=== PATIENT | female | born 2000 | race Caucasian/White ===

== ENCOUNTER 2022-11-06 19:00 | Inpatient (IN) | payer BC ==
[2022-11-06] MEDS ORDERED: Butorphanol Tartrate 1 MG/ML VIAL SLOW IVP PRN (20:11)
[2022-11-06] MEDS ORDERED: HYDROcodone/Acetaminophen 5/325 mg Tablet PO PRN ×2 (20:11)
[2022-11-06] MEDS ORDERED: hydrALAZINE 20 MG/ML VIAL SLOW IVP PRN (20:11)
[2022-11-06] MEDS ORDERED: Promethazine HCl 25 MG/ML VIAL IM PRN (20:11)
[2022-11-06] MEDS ORDERED: Ibuprofen 800 MG TAB PO PRN (20:11)
[2022-11-06] MEDS ORDERED: Lidocaine 1% (PF) 30 ML VIAL SC PRN (20:11)
[2022-11-06] MEDS ORDERED: Ondansetron PF 4 MG/2 ML Vial IVP PRN (20:11)
[2022-11-06] MEDS ORDERED: NS w/ Oxytocin 30 units 500 ML IV SCH ×2 (20:30)
[2022-11-06] MEDS ORDERED: Misoprostol 100 MCG TAB VAG SCH (20:30)
[2022-11-06 20:45] VITALS: BMI 27.6
[2022-11-06 20:46] LABS: Hemoglobin 10.9 g/dL (12.0-15.5); Mean Corpuscular HGB CONC 33.9 g/dL (32.0-36.0); Mean Corpuscular Hemoglobin 30.4 pg (27.0-33.0); Mean Corpuscular Volume 89.9 fl (81.6-98.3); Platelet Count 199 10x3/uL (150-450); RBC Distribution Width 12.7 % (11.5-14.5); Red Blood Cell (RBC) Count 3.58 10x6/uL (3.90-5.03); White Blood Cell (WBC) Count 6.5 10x3/uL (3.5-10.5)
[2022-11-06 21:25] LABS: Syphilis Antibody Nonreactive (Nonreactive); Syphilis Antibody Index 0.04 S/CO (<1.00 Non-Reactive)
[2022-11-06 21:26] LABS: HBSAg Index 0.17 S/CO (0-0.99); Hep B Surf Ag - L&D Non-Reactive S/CO (NonReactive)
[2022-11-06] MEDS ORDERED: Fentanyl 100 MCG/2 ML VIAL SLOW IVP PRN (21:27)
[2022-11-06] MEDS: Misoprostol 100 MCG TAB VAG SCH (22:16)
[2022-11-07] MEDS: Misoprostol 100 MCG TAB VAG SCH ×3 (00:51→11:55)
[2022-11-07] MEDS ORDERED: Fentanyl 2 mcg/Bup 0.1% Cadd 100 ML ONE (09:31)
[2022-11-07] MEDS ORDERED: diphenhydrAMINE 25 MG CAP PO PRN (11:56)
[2022-11-07] MEDS ORDERED: Ondansetron PF 4 MG/2 ML Vial IVP PRN (11:56)
[2022-11-07] MEDS ORDERED: Bisacodyl 10 MG SUPP PR PRN (11:56)
[2022-11-07] MEDS ORDERED: Benzocaine-Menthol 82.5 ML CAN TOP PRN (11:56)
[2022-11-07] MEDS ORDERED: Milk Of Magnesia 30 ML UDCUP PO PRN (11:56)
[2022-11-07] MEDS ORDERED: Boostrix 0.5 ML (Tdap) VIAL (>/=7 yrs of age) IM ONE (11:56)
[2022-11-07] MEDS ORDERED: HYDROcodone/Acetaminophen 5/325 mg Tablet PO PRN ×2 (11:56)
[2022-11-07] MEDS ORDERED: hydrALAZINE 20 MG/ML VIAL SLOW IVP PRN (11:56)
[2022-11-07] MEDS: Ibuprofen 800 MG TAB PO SCH (18:22)
[2022-11-08] MEDS: Ferrous Sulfate 325 MG TAB PO SCH ×2 (01:31→07:13)
[2022-11-08] MEDS: Ibuprofen 800 MG TAB PO SCH ×4 (01:47→18:09)
[2022-11-08] MEDS: Docusate 100 MG CAP PO SCH ×2 (01:47→08:04)
[2022-11-08] MEDS: Misoprostol 100 MCG TAB VAG SCH (07:41)
[2022-11-08] MEDS: Prenatal Vitamin 1 TAB PO SCH (08:05)
[2022-11-09] MEDS: Ibuprofen 800 MG TAB PO SCH ×2 (01:50→10:14)
[2022-11-09] MEDS: Docusate 100 MG CAP PO SCH ×2 (01:50→08:31)
[2022-11-09] MEDS: Ferrous Sulfate 325 MG TAB PO SCH (07:18)
[2022-11-09 07:39] VITALS: BP 111/63; TEMP 98.3
[2022-11-09] MEDS: Prenatal Vitamin 1 TAB PO SCH (08:31)
== END 2022-11-09 11:45 | disposition home or self-care (01) | DRG 807 ==
LOC: CSHLD 20:04 → CSHPP 11-07 11:45
PROVIDERS: ADMIT Obstetrics & Gynecology; ATTEND Obstetrics & Gynecology
PROC: 10E0XZZ Delivery of Products of Conception, External Approach (ICD-10-PCS; principal; 2022-11-07)
PROC: 0KQM0ZZ Repair Perineum Muscle, Open Approach (ICD-10-PCS; 2022-11-07)
DX: O70.1 Second degree perineal laceration during delivery (principal); Z37.0 Single live birth; Z87.891 Personal history of nicotine dependence; Z3A.39 39 weeks gestation of pregnancy
CPT/HCPCS: 36415; 85027; 86780; 86850; 86900; 86901; 87340; J2590; J3010